=== PATIENT | female | born 1985 | race Caucasian/White ===

== ENCOUNTER 2018-05-22 02:34 | Emergency (ER) | payer MEDICAID, OTHER ==
[~2018-05-22] VITALS: Ht 167.6 cm; Wt 81.0 kg
[~2018-05-22 02:34] MED LIST: ALBUTEROL
[2018-05-22 05:45] VITALS: BP 132/86
[2018-05-22] MEDS ORDERED: ACETAMINOPHEN WITH CODEINE 300/30MG TABLET PO ONE (05:45)
== END 2018-05-22 05:45 | disposition home or self-care (01) ==
LOC: ER 02:34
DX: R07.89 Other chest pain (principal); J45.909 Unspecified asthma, uncomplicated; F12.10 Cannabis abuse, uncomplicated; Y04.0XXA Assault by unarmed brawl or fight, initial encounter
CPT/HCPCS: 71045; 93005; 99284; Z7610